=== PATIENT | female | born 1985 | race Caucasian/White ===

== ENCOUNTER 2025-01-04 06:36 | Outpatient (CLI) | payer MEDICAID ==
[2025-01-04] MEDS ORDERED: LIDOcaine 1%/PF 5ML 10 MG/ML VIAL ONE (06:40)
[2025-01-04] MEDS ORDERED: GADOTERATE MEGLUMINE 7.5 MMOL/15 ML VIAL IV ONE (06:40)
[2025-01-04] MEDS ORDERED: LIDOcaine 1% 30ml preserv. free vial ONE (06:40)
[2025-01-04] MEDS ORDERED: iohexol 300 MG/1 ML 50ml polymer ONE (06:40)
--- NOTE | 2025-01-04 07:58 | RADIOLOGY REPORT ---
ANGIO ARTHROGRAM (A) Date: 01/04/2025 07:24 AM Clinical History: RIGHT SHOULDER PAIN Comparison: None Procedure: Verbal and written informed consent were obtained from the patient for the procedure of RIGHT SHOULDE R JOINT fluoroscopically guided arthrogram, after the procedure, risks, and benefits of the procedur e were explained to the patient. Risks include bleeding, infection, reaction to injected medications , and damage to surrounding anatomic structures. The patient's questions were answered. The patient 's most recent medical history was reviewed. A time out was performed to verify the patient's name, date of , and correct location of the pro cedure, prior to initiation of the procedure. The patient tolerated the procedure well. There were no immediate complications. Home-care instruct ions were reviewed with the patient prior to the patient's discharge from the fluoroscopy suite. The patient verbally affirmed understanding of these instructions. Impression: Technically successful fluoroscopically guided RIGHT SHOULDER JOINT arthrogram. The patient was tra nsported to MRI for further imaging at the completion of the procedure. Procedure by Dr. Bowen.
--- NOTE | 2025-01-04 08:20 | RADIOLOGY REPORT ---
CLINICAL HISTORY: PAIN IN RIGHT SHOULDER TECHNIQUE: Multisequence multiplanar MR arthrogram images of the right shoulder were obtained after the uneventful intra-articular administration of dilute gadolinium contrast under fluoroscopic alex nce. For details concerning the contrast injection, refer to the separately dictated same-day convent ional arthrogram report. COMPARISON: Correlation made to same day arthrogram injection images. FINDINGS: Acromioclavicular joint: There is mild acromioclavicular hypertrophy. There is Type 2 acromion. Small amount of fluid in the subacromial / subdeltoid bursa. No contrast in the subacromial / subdeltoid b ursa. Rotator cuff tendons: Supraspinatus, infraspinatus, subscapularis, and teres minor tendons are intact . No significant tendinosis. No evidence of rotator cuff tear. Biceps tendon: T1 hyperintense signal in the proximal long head biceps tendon, may be secondary to th e arthrogram injection rather than due to tear when correlated with the arthrogram injection images. Labrum: Postsurgical changes of prior labral repair with suture anchor of the superior labrum. Promi nent T1 hyperintense signal in the superior labrum long head biceps tendon, likely secondary to the c ontrast injection rather than tear when correlated with arthrogram injection images, although can not exclude superimposed tear. There is hyperintense signal undermining the glenoid attachment of the po sterior superior labrum PD fat saturated images, suspected tear of the posterior superior labrum. Bones: No fracture or focal marrow contusion. Muscles: Normal muscle bulk. No atrophy. Other: Adequate distention of the joint with contrast. No synovitis or loose bodies visualized. IMPRESSION: 1. Postsurgical changes of prior labral repair. Prominent T1 hyperintense signal of the superior labr um extending into the long head biceps tendon may be partly due to the contrast injection when correl ated with the contrast injection images. Superimposed superior labral tear not excluded. 2. Suspected tear of the posterior superior labrum, partially undermining the glenoid attachment. 3. No rotator cuff tear. 4. Mild subacromial/ subdeltoid bursitis.
== END 2025-01-05 23:59 | disposition home or self-care (01) ==
LOC: MRI 06:36
PROVIDERS: ATTEND Specialist
DX: M25.511 Pain in right shoulder (principal); M75.51 Bursitis of right shoulder
CPT/HCPCS: 23350; 73222; 77002; A9575; J2003; J3490; Q9967